=== PATIENT | female | born 1940 | race Hispanic/Latino ===

== ENCOUNTER 2018-10-04 10:56 | Emergency (ER) | payer OTHER ==
--- NOTE | 2018-10-04 12:18 | EDPHYS ---
Physician Documentation [facility] Name: Joyce Espinosa Age: 78 yrs Sex: Female : 1940 Arrival Date: 10/04/2018 Time: 10:59 Bed 19 Private MD: Dipak Morales E ED Physician Andrew Downey HPI: 10/04 12:41 This 78 yrs old Female presents to ER via Ambulatory with complaints of Eye gs Problem. 12:41 The patient is experiencing burning, pain. Onset: The symptoms/episode began/occurred 1 gs year(s) ago, and became persistent. Duration: the symptoms are intermittent. Aggravated by nothing. Alleviated by nothing. Associated signs and symptoms: Pertinent negatives: dizziness, fever. Severity of symptoms: At their worst the symptoms were moderate in the emergency department the symptoms are unchanged. The patient has experienced similar episodes in the past, chronically, last saw opth about 2 months ago says changes insurances which didn't cover doc or meds, scheduled for appt not for a few weeks. Historical: - Allergies: 11:16 No Known Allergies; ph - PMHx: 11:17 absess Left eye; Hypertension; Glaucoma; Cataracts; ph - PSHx: 11:17 Hysterectomy; eye; ph - Immunization history:: Adult Immunizations up to date. - Social history:: Smoking status: Patient/guardian denies using tobacco. - Ebola Screening: : No symptoms or risks identified at this time. ROS: 12:41 All other systems are negative. gs Exam: 12:41 Visual Acuity: I have reviewed the nursing documentation. gs 12:41 Head/Face: Normocephalic, atraumatic. Cardiovascular: Regular rate and rhythm with a normal S1 and S2. No gallops, murmurs, or rubs. Normal PMI, no JVD. No pulse deficits. Respiratory: Lungs have equal breath sounds bilaterally, clear to auscultation and percussion. No rales, rhonchi or wheezes noted. No increased work of breathing, no retractions or nasal flaring. Abdomen/GI: Soft, non-tender, with normal bowel sounds. No distension or tympany. No guarding or rebound. No evidence of tenderness throughout. Skin: Warm, dry with normal turgor. Normal color with no rashes, no lesions, and no evidence of cellulitis. Neuro: Awake and alert, GCS 15, oriented to person, place, time, and situation. Cranial nerves II-XII grossly intact. Motor strength 5/5 in all extremities. Sensory grossly intact. Cerebellar exam normal. Normal gait. 12:41 Constitutional: The patient appears alert, awake. 12:41 Eyes: Conjunctiva: no acute changes, Corneas: no acute changes, Anterior chamber: hyphema noted, absent. Vital Signs: 11:14 BP 142 / 67; Pulse 55; Resp 18; Temp 97.8; Pulse Ox 99% on R/A; ph Visual Acuity: 12:10 Left Eye Visual acuity 20/30, ; Right Eye Visual acuity 20/70, ; Both Eyes Visual hb acuity 20/30; Without Lenses; MDM: 11:37 Patient medically screened. gs 12:41 Differential diagnosis: Acute glaucoma in dry eyes. Data reviewed: vital signs, nurses gs notes. Administered Medications: No medications were administered Disposition: 10/04/18 12:17 Discharged to Home. Impression: Ocular pain, left eye, Ocular pain, right eye. - Condition is Stable. - Discharge Instructions: Glaucoma, Dry Eye. - Medication Reconciliation Form, Thank You Letter, Antibiotic Education, Prescription Opioid Use form. - Follow up: Lisa Reeves MD; When: 2 - 3 days; Reason: Recheck today's complaints, Re-evaluation by your physician. Follow up: Lisa Reeves MD; When: Today; Reason: 1pm. Signatures: Rosa Isela Alvarado RN RN Jolanta Huitron RN RN Andrew Downey MD MD Corrections: (The following items were deleted from the chart) 12:19 12:17 10/04/2018 12:17 Discharged to Home. Impression: Ocular pain, left eye; Ocular gs pain, right eye. Condition is Stable. Forms are Medication Reconciliation Form, Thank You Letter, Antibiotic Education, Prescription Opioid Use. Follow up: Lisa Reeves; When: 2 - 3 days; Reason: Recheck today's complaints, Re-evaluation by your physician. 12:44 12:19 10/04/2018 12:17 Discharged to Home. Impression: Ocular pain, left eye; Ocular hb pain, right eye. Condition is Stable. Discharge Instructions: Glaucoma, Dry Eye. Forms are Medication Reconciliation Form, Thank You Letter, Antibiotic Education, Prescription Opioid Use. Follow up: Lisa Reeves; When: Today; Reason: 1pm. gs
--- NOTE | 2018-10-04 12:18 | ER ---
Nurse's Notes [facility] Name: Joyce Espinosa Age: 78 yrs Sex: Female : 1940 Arrival Date: 10/04/2018 Time: 10:59 Bed 19 Private MD: Dipak Morales E Diagnosis: Ocular pain, left eye;Ocular pain, right eye Presentation: 10/04 11:13 Presenting complaint: Patient states: Wandy eye redness, discharge, watering, pain and ph sensitivity to light, redness and swelling noted to wandy eyes, reports hx of cataracts and glaucoma. Transition of care: patient was not received from another setting of care. Onset of symptoms was October 04, 2018. Risk Assessment: Do you want to hurt yourself or someone else? Patient reports no desire to harm self or others. Initial Sepsis Screen: Does the patient meet any 2 criteria? No. Patient's initial sepsis screen is negative. Care prior to arrival: None. 11:13 Method Of Arrival: Ambulatory ph 11:13 Acuity: ERMELINDA 3 ph Historical: - Allergies: 11:16 No Known Allergies; ph - PMHx: 11:17 absess Left eye; Hypertension; Glaucoma; Cataracts; ph - PSHx: 11:17 Hysterectomy; eye; ph - Immunization history:: Adult Immunizations up to date. - Social history:: Smoking status: Patient/guardian denies using tobacco. - Ebola Screening: : No symptoms or risks identified at this time. Screenin:10 Abuse screen: Denies threats or abuse. Denies injuries from another. Nutritional hb screening: No deficits noted. Tuberculosis screening: No symptoms or risk factors identified. Fall Risk None identified. Assessment: 12:00 General: Appears in no apparent distress. Behavior is calm, cooperative. Pain: Pain hb currently is 2 out of 10 on a pain scale. Neuro: Level of Consciousness is awake, alert, obeys commands, Oriented to person, place, time, situation. Cardiovascular: Capillary refill < 3 seconds Patient's skin is warm and dry. Respiratory: Airway is patent Respiratory effort is even, unlabored, Respiratory pattern is regular, symmetrical. GI: No signs and/or symptoms were reported involving the gastrointestinal system. : No signs and/or symptoms were reported regarding the genitourinary system. EENT: Reports bilateral eye pain and watering. Derm: Skin is intact, is healthy with good turgor. Musculoskeletal: No signs and/or symptoms reported regarding the musculoskeletal system. Vital Signs: 11:14 BP 142 / 67; Pulse 55; Resp 18; Temp 97.8; Pulse Ox 99% on R/A; ph Visual Acuity: 12:10 Left Eye Visual acuity 20/30, ; Right Eye Visual acuity 20/70, ; Both Eyes Visual hb acuity 20/30; Without Lenses; ED Course: 10:59 Patient arrived in ED. sb2 11:00 Dipak Morales MD is Private Physician. sb2 11:14 Triage completed. ph 11:17 Arm band placed on. ph 11:18 Andrew Downey MD is Attending Physician. gs 11:40 Patient has correct armband on for positive identification. Bed in low position. Call light in reach. Side rails up X 1. Adult w/ patient. 12:17 Lisa Reeves MD is Referral Physician. gs 12:18 Referral Physician role handed off by Lisa Reeves MD 12:18 Lisa Reeves MD is Referral Physician. Administered Medications: No medications were administered Outcome: 12:17 Discharge ordered by . gs 12:44 Patient left the ED. Signatures: Rosa Isela Alvarado RN RN Jolanta Huitron RN RN Andrew Downey MD MD Kaycee Holley sb2
[2018-10-04 12:51] VITALS: BP 142/67; TEMP 97.8; O2SAT 99
== END 2018-10-04 12:44 | disposition home or self-care (01) ==
LOC: ER 10:56
DX: H57.13 Ocular pain, bilateral (principal); I10 Essential (primary) hypertension
CPT/HCPCS: 99281

== ENCOUNTER 2022-06-10 17:21 | Inpatient (IN) | payer OTHER ==
--- OUTSIDE RECORDS SUMMARY | 2022-06-10 17:24 | XMS REPORT | Continuity of Care Document ---
:1940 Author Organization [facility] t Address [address] [place] [address] Care Team Providers Name Role Phone EDDIE JJ Primary Care Physician Unavailable Radiology Attending Clinician Unavailable RADIOLOGY Attending Clinician Unavailable Doctor Unassigned, [place] Attending Clinician Unavailable NAVYA WESTBROOK Admitting Clinician Unavailable Payers Payer Name Policy Type Policy Number Effective Date Expiration Date Veronika martinez [employer] [id number] 2021 00:00:00 [place] Problems Condition Condition Condition Status Onset Resolution Last Treating Co mments Source Name Details Category Date Date Treatment Clinician Date Cataract Cataract Disease Active Unive rs of both of both 2-18 ity of eyes eyes 00:00: [place] 00 [facility] Dry eyes Dry eyes Disease Active Unive rs 2-18 ity of 00:00: [address] Other Other Disease Active Overview: Univer s specified specified 04-01 Form[place] i ty of glaucoma glaucoma 00:00: g of this [place] 00 note Medical might be Branch different from the original. Both eyes Allergies, Adverse Reactions, Alerts Allergy Allergy Status Severity Reaction(s) Onset Inactive Treating Comm ents Source Name Type Date Date Clinician NO KNOWN Drug Active Univers ALLERGIE Class ity of S [facility] Social History Social Habit Start Date Stop Date Quantity Comments Source Exposure to Not sure [facility] SARS-CoV-2 (event) Medica l Branch Sex Assigned At [birth year] [facility] 00:00:00 00:00:00 Medical Felicity Smoking Status Start Date Stop Date Source Unknown if ever smoked [facility] Medications Ordered Filled Start Stop Current Ordering Indication Dosage Frequency Signature Comments Components Source Medication Medication Date Date Medication? Clinician (SIG) Name Name TRAVOPROST Yes 1[drp] Place 1 Un rahat (TRAVATAN Z 2-18 Drop in ity o f OPHTHALMIC) 00:00: each eye [place] 00 at Medical bedtime. Branch dorzolamide Yes 1[drp] Place 1 U nivers -timolol 2-18 Drop in ity of (COSOPT) [place] 2-0.5 % 00 2 (two) Medical ophthalmic times Branch drops daily. brimonidine Yes 1[drp] Place 1 U nivers (ALPHAGAN 2-18 Drop in ity of P) 0.15 % 00:00: both eyes [place] as ophthalmic 00 2 (two) Medica l drops times Branch daily. TRAVOPROST Yes 1[drp] Place 1 Un rahat (TRAVATAN Z 2-18 Drop in ity o f OPHTHALMIC) 00:00: [place] 00 at Medical bedtime. Branch dorzolamide Yes 1[drp] Place 1 U nivers -timolol 2-18 Drop in ity of (COSOPT) 00:[place]: [place] 2-0.5 % 00 2 (two) Medical ophthalmic times Branch drops daily. brimonidine Yes 1[drp] Place 1 U nivers (ALPHAGAN 2-18 Drop in ity of P) 0.15 % 00:00: both eyes [place] as ophthalmic 00 2 (two) Medica l drops times Branch daily. Immunizations Ordered Filled Immunization Date Status Comments [facility] e Immunization Name Name SARS-COV-2 COVID-19 2021-07-28 Completed Unive rsity of PFIZER VACCINE 00:00:00 [facility] SARS-COV-2 COVID-19 2021-07-28 Completed Unive rsity of PFIZER VACCINE 00:00:00 [facility] SARS-COV-2 COVID-19 2021-01-06 Completed Unive rsity of PFIZER VACCINE 00:00:00 [facility] SARS-COV-2 COVID-19 2021-01-06 Completed Unive rsity of PFIZER VACCINE 00:00:00 [facility] SARS-COV-2 COVID-19 2020-12-16 Completed Unive rsity of PFIZER VACCINE 00:00:00 [facility] SARS-COV-2 COVID-19 2020-12-16 Completed Unive rsity of PFIZER VACCINE 00:00:00 [facility] Procedures Procedure Date / Time Performed Performing Clinician Sourc e DEXA AXIAL (HIP AND 2022-01-09 15:13:21 Requisition, Paper Unive rsity of [place] SPINE) [facility] ASSIGNMENT OF BENEFITS 2022-01-09 14:10:55 Doctor Unassigned, No [facility] Name [facility] Encounters Start End Encounter Admission Attending Care Care Encounter Source Date/Time Date/Time Type Type Clinicians Facility Department ID 2022-01-09 2022-01-09 Hospital Radiology [facility] [id number] Univers 09:12:17 23:59:00 Encounter [place] [id number] ity [facility] [id number] [facility] [id number] [place] [address] Branch 2022-01-09 2022-01-09 Outpatient R RADIOLOGY [facility] [id number] Univers 09:12:17 23:59:00 ity of [facility] 2022-01-09 2022-01-09 Orders Doctor ABHISHEK [id number] Univers 00:00:00 00:00:00 Only Unassigned, EVAN [id number] ity of [place] [facility] [id number] [place] [id number] [place] [id number] Branch Results This patient has no known results.
[2022-06-10 17:49] LABS: Absolute Lymphocytes (CBC) 2.4 K/uL (0.7-4.9); Lymphocytes % 26.1 % (15.3-44.8); MPV 9.1 fL (7.6-11.3)
[2022-06-10 17:58] LABS: Potassium 3.9 mmol/L (3.5-5.1)
--- NOTE | 2022-06-10 18:11 | RAD REPORT ---
EXAM DESCRIPTION: CT - Head C Spine Cap Wo Con - 06/10/2022 5:56 pm CLINICAL HISTORY: falldown concrete steps, head, neck, chest and abdomen pain COMPARISON: Brain Wo Cont dated 07/12/2019 TECHNIQUE: Axial [address] head images were obtained. Axial [address] cervical spine images were obtain ed with sagittal and coronal reconstruction images reviewed. Axial 5 mm images of the chest, abdomen and pelvis were obtained. All CT scans are performed using dose optimization technique as appropriate and may include automated exposure control or mA/KV adjustment according to patient size. FINDINGS: No intracranial hemorrhage, mass or edema. No midline shift or abnormal fluid collection. Mastoid air cells are clear. Minimal mucosal thickening in the right side sphenoid sinus. No skullbas e fracture identified. No fracture of the cranial vault. Atrophy and chronic ischemic changes are re latively mild for age. Ventricles are in proportion to any volume loss. Cervical bodies are normal in height and alignment.No significant atlantoaxial rotation abnormality. C1 lateral masses are normally positioned to the occipital condyles.No fracture or acute bone finding .C3-4, C4-5 and C5-6 disc space narrowing present. Multilevel facet joint degenerative changes are pr esent. Bilateral bony foraminal encroachment at C3-4 and minimally at C4-5.No prevertebral soft tissu e thickening or paraspinal mass.Central canal detail is inherently limited on CT imaging. Two adjacent areas of irregular soft tissue opacification present in the inferior aspect of the right upper lobe measuring 12 mm and 13 mm in size (series 402, image 21). Interstitial and alveolar opaci ties are present in the right middle lobe and in the lingula of the left upper lobe. Dependent atelec tasis is seen in the posterior aspect of each lower lobe. No pneumothorax or pleural effusion. No med iastinal hematoma and the aorta and pulmonary arteries are unremarkable. No chest will mass or abnorm al axillary finding. No scapula fracture. No displaced rib fractures are seen. Sternum is intact. Tho racic spine degenerative change and kyphosis noted without acute vertebral body finding. CT abdomen and pelvis show no injury to solid abdominal viscera. Gallbladder and biliary tree are unr emarkable. No bowel injury or significant finding. No free air, free fluid or abnormal stranding. No hernia, mass or bulky lymphadenopathy. No urinary bladder abnormality. Prominent lumbar spine degenerative changes are present. No fracture of the bony pelvis. Right proxim al femur fracture is present generally tracking along the subcapital region. No pathologic change. Th ere is minimal impaction. There is slight rotation of the femoral head relative to the neck. IMPRESSION: No acute or significant CT Head finding. No acute or significant CT cervical spine finding. Focal right upper lobe parenchymal opacities could be pulmonary contusion. Right middle lobe and ling kalani interstitial and alveolar opacities are favored to be scarring but could be pulmonary contusion c hange as well. Right upper lobe mass lesion is not excluded entirely and patient needs follow-up CT chest imaging in 4-6 weeks to monitor for resolution. No acute traumatic injury to the abdominal and pelvic soft tissues. Right femur subcapital neck fracture.
--- NOTE | 2022-06-10 18:12 | RAD REPORT ---
EXAM DESCRIPTION: RAD - Chest Single View - 06/10/2022 5:44 pm CLINICAL HISTORY: TRAUMA COMPARISON: Two view chest 12/25/2020 TECHNIQUE: AP portable chest image was obtained 06/10/2022 5:44 pm . FINDINGS: Chronic interstitial fibrotic changes are present. No large areas of pulmonary contusion i dentified. No pneumothorax or pleural fluid collection. Heart size, vasculature and mediastinal structures are within range of normal for portable imaging. No acute bony abnormality seen. No acute aortic findings suspected. IMPRESSION: No acute cardiopulmonary process. Chronic interstitial lung pattern could mask minimal areas of pulmonary contusion.
--- NOTE | 2022-06-10 18:13 | RAD REPORT ---
EXAM DESCRIPTION: Shoulder Right 2 View - 06/10/2022 5:44 pm CLINICAL HISTORY: PAIN COMPARISON: Head C Spine Cap Wo Con dated 06/10/2022 TECHNIQUE: Internal and external rotation views of the right shoulder were obtained. FINDINGS: There is no fracture or dislocation. AC joint degenerative change present without AC sepa ration. Inferiorly directed spurs are seen. No pathologic bone process. Degenerative change seen rebecca g the superolateral greater tuberosity. IMPRESSION: Negative two-view right shoulder examination for fracture or acute finding.
--- NOTE | 2022-06-10 18:14 | RAD REPORT ---
EXAM DESCRIPTION: RAD - Hip Right 2 View - 06/10/2022 5:44 pm CLINICAL HISTORY: PAIN, fall COMPARISON: No comparisons FINDINGS: AP and cross-table lateral views were obtained. Minimally impacted subcapital right femoral neck fracture is present. There is impaction along the po sterior margin with slight rotation the femoral head. No pathologic changes seen. No fracture of the right hemipelvis are right sacral ala. Lower lumbar degenerative changes are prese nt. No AVN of the femoral head. IMPRESSION: Minimally impacted right femur subcapital neck fracture.
[2022-06-10] MEDS ORDERED: FENTANYL CITR 100 MCG/2 ML ONE (18:31)
--- NOTE | 2022-06-10 18:50 | ER ---
Nurse's Notes [facility] Name: Joyce Espinosa Age: 81 yrs Sex: Female : 1940 Arrival Date: 06/10/2022 Time: 17:22 Bed 2 Private MD: Diagnosis: Right subcapital neck fracture;Pain in right hip;Fall (on) (from) other stairs and steps;Essential (primary) hypertension Presentation: 06/10 17:23 Chief complaint: EMS states: FALL DOWN CONCRETE STEPS. Care prior to arrival: bp Medication(s) given: 25 MCG FENTANYL IV initiated. 20 GA, in the right antecubital area. Mechanism of Injury: Fall CONCRETE STEPS. Trauma event details: Injury occurred in the [facility], Injury occurred: at home. Injury occurred: June 10, 2022 Injury occurred at: 17:00. 17:23 Acuity: ERMELINDA 3 bp 17:23 Method Of Arrival: EMS: [facility] bp 17:28 Coronavirus screen: At this time, the client does not indicate any symptoms associated bp with coronavirus-19. Ebola Screen: No symptoms or risks identified at this time. Initial Sepsis Screen: Does the patient meet any 2 criteria? No. Patient's initial sepsis screen is negative. Does the patient have a suspected source of infection? No. Patient's initial sepsis screen is negative. Risk Assessment: Do you want to hurt yourself or someone else? Patient reports no desire to harm self or others. Onset of symptoms was June 10, 2022 at 17:00. Triage Assessment: 17:29 General: SEE TRAUMA. bp Trauma Activation: Consult Physician: ED Physician; Name: ; Notified At: ; Arrived At: Physician: General Surgeon; Name: ; Notified At: ; Arrived At: Physician: Radiology; Name: ; Notified At: ; Arrived At: Physician: Respiratory; Name: ; Notified At: ; Arrived At: Physician: Lab; Name: ; Notified At: ; Arrived At: Historical: - Allergies: : No Known Allergies; bp - Home Meds: : metoprolol tartrate 25 mg Oral tab 1 tab once daily [Active]; Nexium 40 mg Oral cpDR 1 bp cap once daily [Active]; - PMHx: :29 Hypertension; Glaucoma; Cataracts; absess Left eye; bp - Immunization history: Last tetanus immunization: unknown. - Social history:: Smoking status: Patient denies any tobacco usage or history of. Screenin:23 Abuse screen: Denies threats or abuse. Denies injuries from another. Tuberculosis bp screening: No symptoms or risk factors identified. 17:31 Nutritional screening: No deficits noted. Fall Risk None identified. bp Primary Survey: 17:23 NO uncontrolled hemorrhage observed. A: The client is awake and alert. The airway is bp patent. Breathing/Chest: Spontaneous respiratory effort, equal unlabored respirations, breath sounds clear bilaterally, regular pattern, symmetrical chest rise and fall. Circulation: No external hemorrhage present. Regular and strong central pulse, skin warm/dry/normal color. Disability Client is alert. Exposure/Environment: There is no evidence of uncontrolled external bleeding. Obvious injury(ies) are noted at this time: R HIP PAIN WITH R LEG SHORTENING. 21:02 Reassessment Breathing: Spontaneous respiratory effort, equal unlabored respirations, ld1 breath sounds clear bilaterally, regular pattern with symmetrical chest rise and fall. Assessment: 17:23 General: Appears distressed, uncomfortable, Behavior is calm, cooperative, appropriate bp for age. Pain: Complains of pain in right hip. Neuro: Level of Consciousness is awake, alert, obeys commands, Oriented to person, place, time, situation, Appropriate for age. EENT: No deficits noted. Cardiovascular: No deficits noted. Respiratory: No deficits noted. GI: No signs and/or symptoms were reported involving the gastrointestinal system. : No signs and/or symptoms were reported regarding the genitourinary system. Derm: No deficits noted. Musculoskeletal: No deficits noted. Injury Description: Bruise sustained to right hip. 18:08 Reassessment: No changes from previously documented assessment. Patient and/or family bp updated on plan of care and expected duration. Pain level reassessed. PT RETURNED FROM CT. Vital Signs: 17:23 BP 149 / 97; Pulse 75; Resp 16; Temp 98; Pulse Ox 100% ; bp 18:08 BP 142 / 66; Pulse 64; Resp 18; Pulse Ox 99% ; bp Edward Coma Score: 17:23 Eye Response: spontaneous(4). Verbal Response: oriented(5). Motor Response: obeys bp commands(6). Total: 15. Trauma Score (Adult): 17:23 Eye Response: spontaneous(1); Verbal Response: oriented(1); Motor Response: obeys bp commands(2); Systolic BP: > 89 mm Hg(4); Respiratory Rate: 10 to 29 per min(4); Edward Score: 15; Trauma Score: 12 ED Course: 17:22 Patient arrived in ED. ms3 17:22 Nicola Rodriguez DO is Attending Physician. ms3 17:23 Mario Mg, YUSUF is Primary Nurse. bp 17:23 Patient has correct armband on for positive identification. Bed in low position. Call bp light in reach. Side rails up X2. 17:23 Patient maintains SpO2 saturation greater than 95% on room air. Thermoregulation: warm bp blanket given to patient. 17:25 Triage completed. bp 17:31 Maintain EMS IV. Dressing intact. Good blood return noted. Site clean \T\ dry. Gauge \T\ bp site: 20 GA RIGHT AC. 17:45 XRAY Chest (1 view) In Process Unspecified. EDMS 17:45 Shoulder Right (2 View) XRAY In Process Unspecified. EDMS 17:46 Hip Right 2 View XRAY In Process Unspecified. EDMS 17:58 CT Traumagram (Head C Spine CAP wo con) In Process Unspecified. EDMS 18:30 Type And Screen Sent. kc6 18:49 Teofilo Barnard MD is Hospitalizing Provider. ms3 21:02 No provider procedures requiring assistance completed. Patient admitted, IV remains in ld1 place. 21:03 Arm band placed on left wrist. ld1 Administered Medications: 18:28 Drug: fentaNYL (PF) 25 mcg Route: IVP; Site: right antecubital; ld1 Medication: 17:31 VIS not applicable for this client. bp Intake: 17:23 PO: 0ml; Total: 0ml. bp Output: 17:23 Urine: 0ml; Total: 0ml. bp Outcome: 18:49 Decision to Hospitalize by Provider. ms3 21:02 Admitted to Med/surg accompanied by gerri, via stretcher, room 228, with chart, Report ld1 called to YUSUF Oden 21:02 Condition: stable 21:02 Instructed on the need for admit. 21:02 Patient's length of stay in the Emergency Department was greater than 2 hours. ld1 21:03 Patient left the ED. ld1 Signatures: Dispatcher [employer] Mario Caballero, RN RN bp Nicola Rodriguez DO DO ms3 Maria G High RN RN ld1 Lesli Arreola kc6
--- NOTE | 2022-06-10 18:50 | EDPHYS ---
Physician Documentation [facility] Name: Joyce Espinosa Age: 81 yrs Sex: Female : 1940 Arrival Date: 06/10/2022 Time: 17:22 Bed 2 Private MD: ED Physician Nicola Rodriguez HPI: 06/10 17:26 This 81 yrs old Female presents to ER via EMS with complaints of Fall Injury. ms3 17:26 Details of fall: The patient fell from a height, unknown number of stairs. Onset: The ms3 symptoms/episode began/occurred at an unknown time. Associated injuries: The patient sustained Right shoulder, right hip. Severity of symptoms: At their worst the symptoms were moderate, in the emergency department the symptoms are unchanged. Presented via [facility]. Patient given 25 mcg Fentanyl and 4 mg Zofran. Historical: - Allergies: 17:29 No Known Allergies; bp - Home Meds: 17:29 metoprolol tartrate 25 mg Oral tab 1 tab once daily [Active]; Nexium 40 mg Oral cpDR 1 bp cap once daily [Active]; - PMHx: 17:29 Hypertension; Glaucoma; Cataracts; absess Left eye; bp - Immunization history: Last tetanus immunization: unknown. - Social history:: Smoking status: Patient denies any tobacco usage or history of. ROS: 17:26 Constitutional: Negative for fever, and chills. Neck: Negative for injury, pain, and ms3 swelling, Cardiovascular: Negative for chest pain, and palpitations. Respiratory: Negative for shortness of breath, cough, wheezing, and pleuritic chest pain, Abdomen/GI: Negative for abdominal pain, nausea, vomiting, diarrhea, and constipation. 17:26 MS/extremity: Positive for pain, Right shoulder, right hip. 17:26 All other systems are negative. Exam: 17:30 Constitutional: This is a well developed, well nourished patient who is awake, alert, ms3 and in no acute distress. Head/Face: Normocephalic, atraumatic. Neck: Trachea midline, no cervical lymphadenopathy. Supple, full range of motion without nuchal rigidity, or vertebral point tenderness. No Meningismus. Chest/axilla: Normal chest wall appearance and motion. Nontender with no deformity. Cardiovascular: Regular rate and rhythm with a normal S1 and S2. No gallops, murmurs, or rubs. Normal PMI, no JVD. No pulse deficits. Respiratory: Lungs have equal breath sounds bilaterally, clear to auscultation and percussion. No rales, rhonchi or wheezes noted. No increased work of breathing, no retractions or nasal flaring. Abdomen/GI: Soft, non-tender, with normal bowel sounds. No distension or tympany. No guarding or rebound. No evidence of tenderness throughout. Skin: Warm, dry with normal turgor. Normal color with no rashes, no lesions, and no evidence of cellulitis. 17:30 Musculoskeletal/extremity: Extremities: noted in the right hip: pain, tenderness, noted in the right shoulder: pain. Vital Signs: 17:23 BP 149 / 97; Pulse 75; Resp 16; Temp 98; Pulse Ox 100% ; bp 18:08 BP 142 / 66; Pulse 64; Resp 18; Pulse Ox 99% ; bp [place] Coma Score: 17:23 Eye Response: spontaneous(4). Verbal Response: oriented(5). Motor Response: obeys bp commands(6). Total: 15. Trauma Score (Adult): 17:23 Eye Response: spontaneous(1); Verbal Response: oriented(1); Motor Response: obeys bp commands(2); Systolic BP: > 89 mm Hg(4); Respiratory Rate: 10 to 29 per min(4); [place] Score: 15; Trauma Score: 12 MDM: 17:22 Patient medically screened. ms3 17:30 Differential diagnosis: contusion, fracture, multiple trauma. Data reviewed: vital ms3 signs, nurses notes. 18:50 Data interpreted: monitor technician: rate is 71 beats/min, rhythm is normal sinus rhythm, ms3 regular, with no ectopy, Interpretation: normal rate, normal rhythm. Counseling: I had a detailed discussion with the patient and/or guardian regarding: the historical points, exam findings, and any diagnostic results supporting the discharge/admit diagnosis, lab results, radiology results, the need for further work-up and treatment in the hospital. ED course: Discussed case with Dr Ruiz. Will consult if needed. Likely pulmonary scaring vs contusions. Discussed case with Dr Truong and he will consult. Discussed case with Ac Nino NP, and he accepts patient on behalf of Dr Barnard. Patient remains in stable condition.. 06/10 17:24 Order name: Basic Metabolic Panel; Complete Time: 18:32 ms3 06/10 17:24 Order name: CBC with Diff; Complete Time: 18:32 ms3 06/10 17:24 Order name: Type And Screen; Complete Time: 18:32 ms3 06/10 17:24 Order name: CT Traumagram (Head C Spine CAP wo con) ms3 06/10 18:50 Order name: SARS RAPID ld1 06/10 19:02 Order name: ABO/RH no charge EDMS 06/10 17:24 Order name: XRAY Chest (1 view); Complete Time: 18:32 ms3 06/10 17:24 Order name: Labs collected and sent; Complete Time: 17:30 ms3 06/10 17:25 Order name: Shoulder Right (2 View) XRAY; Complete Time: 18:32 ms3 06/10 17:25 Order name: Hip Right 2 View XRAY; Complete Time: 18:32 ms3 Administered Medications: 18:28 Drug: fentaNYL (PF) 25 mcg Route: IVP; Site: right antecubital; ld1 Disposition Summary: 06/10/22 18:49 Hospitalization Ordered Hospitalization Status: Inpatient Admission ms3 Provider: Teofilo Barnard ms3 Condition: Stable ms3 Problem: new ms3 Symptoms: are unchanged ms3 Bed/Room Type: Standard ms3 Location: Telemetry/MedSurg (Inpatient)(06/10/22 20:17) cg Room Assignment: [employer](06/10/22 20:17) Diagnosis - Right subcapital neck fracture ms3 - Pain in right hip ms3 - Fall (on) (from) other stairs and steps ms3 - Essential (primary) hypertension ms3 Forms: - Medication Reconciliation Form ms3 - SBAR form ms3 Signatures: Dispatcher [employer] EDMS Dolly Trent Cindy RN RN cg Mario Mg RN RN Nicola Sandhu DO DO ms3 Maria G High RN RN ld1 Corrections: (The following items were deleted from the chart) 18:51 18:49 Telemetry/MedSurg (Inpatient) ms3 bd 18:51 18:49 ms3 bd 20:17 18:51 BR ER HOLD bd cg 20:17 18:51 ERHOLD- bd cg
[2022-06-10] MEDS ORDERED: ONDANSETRON 4 MG/2 ML VIAL IV PRN (19:00)
[2022-06-10] MEDS: D5.45NS W/KCL 20MEQ 1,000 ML IV SCH (19:00)
[2022-06-10 19:06] VITALS: BMI 17.6
--- NOTE | 2022-06-10 19:09 | P.HP ---
Certification for Inpatient Patient admitted to: Inpatient With expected LOS: >2 Midnights Patient will require the following post-hospital care: None Practitioner: I am a practitioner with admitting privileges, knowledge of patient current condition, hospital course, and medical plan of care. Services: Services provided to patient in accordance with Admission requirements found in Title 42 Section 412.3 of the Code of Federal Regulations Patient History Date of Service: 06/10/22 Reason for admission: Right hip fracture History of Present Illness: 81-year-old female with history of hypertension, GERD presents emergency department after sustaining a fall at her assisted living facility. She fell down approximately 2 steps, reports that she lost her footing denies LOC. Patient was complaining of right hip pain she was evaluated in the emergency department her labs were significant for hemoglobin 9.[address] of her head/C-spine/chest abdomen pelvis showed 2 adjacent areas of irregular soft tissue opacification present in the inferior aspect of the right upper lobe measuring 12 mm and 13 mm in size, interstitial and alveolar opacities present in the right middle lobe and lingula of the left upper lobe which could be scarring versus pulmonary contusion, radiology recommends follow-up CT in 4 to 6 weeks to monitor for resolution. Also significant for right femur subcapital neck fracture. ED physician discussed case with surgery on-call Dr. Ruiz and orthopedic Dr. Truong will both be consulted on this patient. Will admit for further evaluation and management. Allergies No Known Allergies Allergy (Verified 07/19/14 15:34) Home Medications: Difluprednate [Durezol] 1 drop OP QID 07/19/14 Gentamicin Opth Drop [Garamycin Opth Drops*] 1 drop OP TID 07/19/14 Metoprolol Succinate [Toprol Xl*] 25 mg PO DAILY #30 tab 07/20/14 - Past Medical/Surgical History Has patient received pneumonia vaccine in the past: No Diabetic: No -: glaucoma -: Hypertension -: GERD -: glaucoma sx Psychosocial/ Personal History: Patient lives with her at an assisted living facility - Family History Family History: Reviewed- Non-Contributory - Social History Smoking Status: Never smoker Alcohol use: No CD- Drugs: No Caffeine use: Yes Place of Residence: Home Review of Systems 10-point ROS is otherwise unremarkable Musculoskeletal: Leg Pain, As per HPI Physical Examination - Physical Exam General: Alert, In no apparent distress, Oriented x3 HEENT: Atraumatic, PERRLA, Mucous membr. moist/pink, EOMI, Sclerae nonicteric Neck: Supple, 2+ carotid pulse no bruit, No LAD, Without JVD or thyroid abnormality Respiratory: Clear to auscultation bilaterally, Normal air movement Cardiovascular: Regular rate/rhythm, Normal S1 S2 Capillary refill: <2 Seconds Gastrointestinal: Normal bowel sounds, No tenderness Musculoskeletal: Other (Shortening of right lower extremity) Integumentary: No rashes Neurological: Normal gait, Normal speech, Normal strength at 5/5 x4 extr, Normal tone, Normal affect - Studies Laboratory Data (last 24 hrs) 06/10/22 17:27: WBC 9.30, Hgb 9.7 L, Hct 29.0 L, Plt Count 282 06/10/22 17:27: Sodium 138, Potassium 3.9, BUN 22 H, Creatinine 0.77, Glucose 128 H Assessment and Plan - Plan Assessment: Right subcapital femoral neck fracture Pulmonary contusions versus scarring Hypertension GERD Plan: Right subcapital femoral neck fracture: N.p.o., IVF, as needed pain medications. Orthopedics consulted anticipate operative management. Pulmonary contusions versus scarring: Unclear on CT whether this is related to scarring versus contusions but patient did sustain a fall. Continue with incentive spirometry, surgical consult in place as needed pain medications. Patient not complaining of significant chest pain at this time. Radiology does recommend follow-up CT scan in 4 to 6 weeks to assess for resolution and rule out mass/lesion. Hypertension: Continue home medications once verified. GERD: Continue home medications once verified. DVT PPX:SCD Code status:Full Discharge Plan: Home Plan to discharge in: Greater than 2 days - Advance Directives Does patient have a Living Will: No Does patient have a Durable POA for Healthcare: No - Code Status/Comfort Care Code Status Assessed: Yes (Full) Critical Care: No Time Spent Managing Pts Care (In Minutes): 70
[2022-06-10] MEDS ORDERED: D5.45NS W/KCL 20MEQ 1,000 ML IV ONE (19:27)
[2022-06-10 20:01] LABS: SARS-CoV-2 Antigen Rapid Res Negative (Negative)
[2022-06-10] MEDS: MORPHINE 2 MG/ML SYR IV PRN (20:06)
[2022-06-10] MEDS ORDERED: MORPHINE 2 MG/ML SYR ONE (20:13)
[2022-06-10] MEDS ORDERED: ONDANSETRON 4 MG/2 ML VIAL ONE (20:13)
[2022-06-11] MEDS: MORPHINE 2 MG/ML SYR IV PRN ×2 (03:32→14:35)
[2022-06-11] MEDS ORDERED: MORPHINE 2 MG/ML SYR IV ONE (04:51)
[2022-06-11 05:44] LABS: Absolute Lymphocytes (CBC) 1.2 K/uL (0.7-4.9); Hematocrit 27.3 % (36.0-45.0); MCV 87.9 fL (80-100); MPV 8.7 fL (7.6-11.3)
[2022-06-11 06:12] LABS: Albumin 3.1 g/dL (3.4-5.0); Bilirubin Total 0.6 mg/dL (0.2-1.0); Potassium 3.9 mmol/L (3.5-5.1); Protein, Total 6.8 g/dL (6.4-8.2)
--- NOTE | 2022-06-11 06:32 | P.PN ---
Date of Service: 06/11/22 Subjective: No significant changes Having right hip pain with movement, okay at rest Denies any cough, fever, shortness of breath, dysuria ROS: 10 point ROS as noted above, otherwise negative Physical exam GEN: Alert, oriented, NAD HEENT: Normal conjunctiva, sclera anicteric CV: Regular rate and rhythm, no edema Pulm: Nonlabored respirations on room air ABD: Soft, nontender, nondistended MSK: pain at R hip with movement/ROM Neuro: Normal speech, normal affect Problem List Right subcapital femoral neck fracture Pulmonary contusions vs scarring Hypertension GERD Right subcapital femoral neck fracture: NPO, IVF ortho consulted patient optimized for surgery Tentative plan for OR today Pulmonary contusions vs scarring: Unclear on CT whether this is related to scarring versus contusions but patient did sustain a fall. No obvious ecchymosis or tenderness over the coinciding skin/ribs. Unlikely to be contusions Dr. Haro, general surgery was consulted as this was a trauma. No further evaluation needed Continue with incentive spirometry Hypertension: Continue home medications once verified / taking PO GERD: Continue home medications once verified. VTE: SCDs pre-op Code status:Full Dispo: Home, ~1-2 days
[2022-06-11] MEDS: D5.45NS W/KCL 20MEQ 1,000 ML IV SCH ×2 (09:37→22:22)
--- NOTE | 2022-06-11 14:29 | CON ---
Date of Consultation: 06/11/2022 Reason For Consultation: Status post fall, right hip fracture, rule out right chest contusion. History Of Present Illness: The patient is an 81-year-old female, who fell approximately 2 steps aft er losing balance and injured her right hip. She is Latvian speaking. She denies any loss of consci ousness. She states that she lost her footing before she fell. She is complaining of right hip pain , but she denies any chest pain. No dyspnea. No shortness of breath. No cough. No pain anywhere o n the chest area. No sore throat, runny nose, cough, headaches, or dizziness. No fever or chills. Review of Systems: Otherwise unremarkable. Past Medical History: Glaucoma, hypertension, and GERD. Past Surgical History: Glaucoma surgery. Allergies: NO ALLERGIES. Social History: The patient does not smoke or drink. Family History: Noncontributory. Physical Examination: Vital Signs: Stable. She is currently afebrile. General: She is awake and alert. She is oriented x3. Head and Neck: Cranial nerves 2 through 12 are grossly within normal limits. No neck masses. No JV D. Throat clear. Neck is supple. No neck tenderness. Chest: There is no tenderness, bruising. The patient can respire fully without any difficulty. Heart: S1 and S2. Abdomen: Soft. Extremities: The right hip is tender. Extremities neurovascular intact. Neuro: Nonfocal. Diagnostic Data: Reviewed. H and H are stable. White count is normal. Chemistry reviewed. Tomogr am reviewed. Chest x-ray reviewed. Basically, the patient has a hip fracture on the right side and she had some opacities in the right lung, which are moral consistent with chronic lung disease rather than acute contusion as the patient has no evidence of trauma to the right chest. There are no acut e findings on the CAT scan. Assessment: An 81-year-old female, status post fall with right hip fracture and I believe the patien t does not have lung contusion. Recommendations: Surgery per the Orthopedic Service and incentive spirometry and oxygen per protocol . No need for any trauma surgery intervention at this time. Please re-consult pdon BARNES/MARY ANNE Voice ID: [id number] Report ID: [id number]
[2022-06-11] MEDS: Ringers Lactate 0 ML IV ONE ×2 (15:50→15:57)
[2022-06-11] MEDS ORDERED: CEFAZOLIN SODIUM 1 GM/VIAL ONE (15:57)
[2022-06-11] MEDS ORDERED: TRANEXAMIC ACID 1,000 MG/10 ML VIAL IV ONE (15:57)
[2022-06-11] MEDS ORDERED: propofoL 200 MG/20 ML VIAL IV ONE (16:07)
[2022-06-11] MEDS ORDERED: LIDOCAINE 2% MPF 5 ML VIAL ONE (16:08)
[2022-06-11] MEDS ORDERED: Phenylephrine HCl 10 MG/ML 1 ML VIAL ONE (16:09)
[2022-06-11] MEDS ORDERED: GLYCOPYRROLATE 0.2 MG/ML SYR ONE ×2 (16:32→17:24)
[2022-06-11] MEDS ORDERED: FENTANYL CITR 100 MCG/2 ML ONE (16:37)
[2022-06-11] MEDS ORDERED: Ringers Lactate 1,000 ML IV ONE (16:47)
[2022-06-11] MEDS ORDERED: KETOROLAC 30 MG/ML INJ ONE (16:55)
[2022-06-11] MEDS ORDERED: dexAMETHasone 10 MG/ML VIAL ONE (16:56)
[2022-06-11] MEDS ORDERED: ONDANSETRON 4 MG/2 ML VIAL ONE (16:56)
--- NOTE | 2022-06-11 17:49 | P.BOP ---
Preoperative diagnosis: right femoral neck fracture Postoperative diagnosis: same Primary procedure: right bipolar hemiarthoplasty Estimated blood loss: 150 ccs Anesthesia: General Complications: None Transferred to: Recovery Room Condition: Good
[2022-06-12] MEDS: CEFAZOLIN 1 GM in NA CHLORIDE 0.9% 50 ML IVPB SCH ×2 (00:01→08:39)
[2022-06-12] MEDS ORDERED: NA CHLORIDE 0.9% 500 ML IV ONE (03:42)
[2022-06-12] MEDS ORDERED: NA CHLORIDE 0.9% 500 ML ONE (03:53)
[2022-06-12] MEDS ORDERED: HYDROCODONE/APAP 5/325 MG TAB PO PRN (04:02)
[2022-06-12] MEDS ORDERED: ACETAMINOPHEN 500 MG TAB PO PRN (04:02)
[2022-06-12] MEDS ORDERED: MORPHINE 2 MG/ML SYR IV PRN (04:03)
[2022-06-12 06:16] LABS: Absolute Lymphocytes (CBC) 0.5 K/uL (0.7-4.9); Hematocrit 23.7 % (36.0-45.0); Lymphocytes % 4.4 % (15.3-44.8); MCV 86.4 fL (80-100); MPV 8.6 fL (7.6-11.3); RBC Red Blood Cell Count 2.74 M/uL (3.86-4.86)
[2022-06-12 06:29] LABS: Albumin 2.6 g/dL (3.4-5.0); Bilirubin Total 0.5 mg/dL (0.2-1.0); Potassium 4.2 mmol/L (3.5-5.1)
--- NOTE | 2022-06-12 06:32 | P.PN ---
Date of Service: 06/12/22 Subjective: pain improved after surgery worked with PT hgb decreased, soft BP dry mouth (chronic) low appetite (chronic) ROS: 10 point ROS as noted above, otherwise negative Physical exam GEN: Alert, oriented, NAD HEENT: Normal conjunctiva, sclera anicteric CV: Regular rate and rhythm, no edema Pulm: Nonlabored respirations on room air ABD: Soft, nontender, nondistended MSK: discomfort at R hip with movement/ROM Neuro: Normal speech, normal affect Problem List Right subcapital femoral neck fracture Pulmonary scarring Hypertension GERD anemia, iron deficiency Right subcapital femoral neck fracture: s/p repair by Dr. Truong 06/11 doing well working with PT pain meds as needed WBAT Pulmonary contusions vs scarring: No obvious ecchymosis or tenderness over the coinciding skin/ribs. Unlikely to be contusions Dr. Ruiz, general surgery was consulted as this was a trauma. No further evaluation needed Continue with incentive spirometry start xarelto 06/12 for prophylaxis Hypertension: Continue home medications once verified / taking PO GERD: Continue home medications once verified. Iron deficiency anemia: IV iron, patient with poor nutritional intake, denies dark stools VTE: xarelto, prophylaxis Code status:Full Dispo: Home, ~1-2 days
[2022-06-12 06:46] LABS: RBC Red Blood Cell Count 2.73 M/uL (3.86-4.86)
[2022-06-12 06:54] LABS: Ferritin 28.4 ng/mL (8-388)
[2022-06-12] MEDS: RIVAROXABAN 10 MG TABLET PO SCH (08:39)
[2022-06-12] MEDS: D5.45NS W/KCL 20MEQ 1,000 ML IV SCH (18:32)
[2022-06-12] MEDS ORDERED: MELATONIN 5 MG TABLET PO PRN (19:51)
[2022-06-13 01:38] VITALS: O2SAT 98
[2022-06-13] MEDS ORDERED: SOD FERRIC GLUC COMPLX/SUCROSE 125 MG in NA CHLORIDE 0.9% 100 ML IV SCH (06:00)
[2022-06-13 06:18] LABS: Hematocrit 23.5 % (36.0-45.0); MCV 88.2 fL (80-100); RBC Red Blood Cell Count 2.66 M/uL (3.86-4.86)
[2022-06-13] MEDS ORDERED: PANTOPRAZOLE 40MG TABLET PO SCH (06:30)
[2022-06-13 06:33] LABS: Magnesium 1.8 mg/dL (1.8-2.4); Potassium 3.8 mmol/L (3.5-5.1)
[2022-06-13] MEDS ORDERED: NA CHLORIDE 0.9% 250 ML IV SCH (07:00)
[2022-06-13] MEDS: RIVAROXABAN 10 MG TABLET PO SCH (08:02)
[2022-06-13] MEDS ORDERED: POTASSIUM 25 MEQ EFFERV TAB PO ONE (09:00)
--- NOTE | 2022-06-13 15:12 | P.DS ---
Admission Date: 06/10/22 Discharge Date: 06/13/22 Disposition: DC HOME/HOME HEALTH CARE Discharge Condition: GOOD Reason for Admission: Right hip fracture Consultations: Orthopedic surgery - Dr. Truong General surgery - Dr. Ruiz Brief History of Present Illness: 81yo F, PMH: HTN, GERD, Dry mouth Presents to ED after fall while walking down stairs. Denies LOC. Fell down ~ 2 steps landing on her right hip. In the ED, she was found to be anemic with Hgb in the 9s, CT with R femur subcapital neck fracture. Admitted for further management. CT of her head/C-spine/chest abdomen pelvis showed 2 adjacent areas of irregular soft tissue opacification present in the inferior aspect of the right upper lobe measuring 12 mm and 13 mm in size, interstitial and alveolar opacities present in the right middle lobe and lingula of the left upper lobe which could be scarring versus pulmonary contusion, radiology recommends follow-up CT in 4 to 6 weeks to monitor for resolution. Hospital Course: Problem List Right subcapital femoral neck fracture no s/p surgical fixation Hypertension GERD anemia, iron deficiency Patient presented to ER after fall while exercising on stairs and was found to have a right subcapital femoral neck fracture. She underwent surgical correction by Dr. Truong without complications. Patient was noted to be anemic on admission with Hgb: 9.0. She denied prior history of anemia, however for the last year or more has been having difficulty eating solid foods due to dry mouth. She drinks lots of soups / ensures, etc. Workup revealed iron deficiency. Post-operatively her hemoglobin trending slowly down to just under 8. She was given 1 unit PRBC. She ambulated with physical therapy and pain was tolerable. Discharged home with home health / PT, with 3 weeks of 10mg xarelto, then should take aspirin 81mg for 3 weeks. Medications: New: Xarelto - 10mg, 3 weeks, post-op DVT prophylaxis Aspirin 81mg daily for 3 weeks - start AFTER finishing xarelto Iron - once daily no other changes to medications Follow up: PCP within [address] Truong in ~1-2 weeks As noted above, incidental CT findings of lung; recommend repeat CT chest in 4-6 weeks. Physical exam GEN: Alert, oriented, NAD HEENT: Normal conjunctiva, sclera anicteric CV: Regular rate and rhythm, no edema Pulm: Nonlabored respirations on room air ABD: Soft, nontender, nondistended MSK: discomfort at R hip with movement/ROM Neuro: Normal speech, normal affect Vital Signs/Physical Exam: Temp Pulse Resp BP Pulse Ox 97.6 F 71 16 103/48 L 96 06/13/22 12:00 06/13/22 12:00 06/13/22 12:00 06/13/22 12:00 06/13/22 12:00 Laboratory Data at Discharge: WBC 11.10 K/uL (4.3-10.9) H 06/13/22 05:24 Hgb Cancelled 06/13/22 14:13 Hct Cancelled 06/13/22 14:13 Plt Count 203 K/uL (152-406) 06/13/22 05:24 Sodium 137 mmol/L (136-145) 06/13/22 05:24 Potassium 3.8 mmol/L (3.5-5.1) 06/13/22 05:24 BUN 15 mg/dL (7-18) 06/13/22 05:24 Creatinine 0.62 mg/dL (0.55-1.3) 06/13/22 05:24 Glucose 105 mg/dL (74-106) 06/13/22 05:24 Magnesium 1.8 mg/dL (1.8-2.4) 06/13/22 05:24 Total Bilirubin 0.5 mg/dL (0.2-1.0) 06/12/22 05:48 AST 34 U/L (15-37) 06/12/22 05:48 ALT 19 U/L (12-78) 06/12/22 05:48 Alkaline Phosphatase 52 U/L (45-117) 06/12/22 05:48 Home Medications: Cevimeline HCl 1 cap PO TID 06/11/22 Cyclosporine [Restasis] 2 drop EACH EYE BID 06/11/22 Esomeprazole Mag Trihydrate [Nexium] 1 cap PO DAILY AT SUPPER 06/11/22 Lifitegrast [Xiidra] 2 drops EACH EYE BEDTIME 06/11/22 Codeine/APAP [Tylenol W/Codeine #3 tab] 1 tab PO Q8HP PRN 5 Days #15 tab 06/13/22 Ferrous Sulfate [Iron] 325 mg PO DAILY 30 Days #30 tab 06/13/22 Rivaroxaban [Xarelto*] 10 mg PO DAILY 20 Days #20 tab 06/13/22 New Medications: Codeine/APAP [Tylenol W/Codeine #3 tab] 1 tab PO Q8HP PRN 5 Days #15 tab PRN Reason: Pain Ferrous Sulfate [Iron] 325 mg PO DAILY 30 Days #30 tab Rivaroxaban [Xarelto*] 10 mg PO DAILY 20 Days #20 tab Physician Discharge Instructions: Patient presented to ER after fall while exercising on stairs and was found to have a right subcapital femoral neck fracture. She underwent surgical correction by Dr. Truong without complications. Patient was noted to be anemic on admission with Hgb: 9.0. She denied prior history of anemia, however for the last year or more has been having difficulty eating solid foods due to dry mouth. She drinks lots of soups / ensures, etc. Workup revealed iron deficiency. Post-operatively her hemoglobin trending slowly down to just under 8. She was given 1 unit PRBC. She ambulated with physical therapy and pain was tolerable. Discharged home with home health / PT, with 3 weeks of 10mg xarelto, then should take aspirin 81mg for 3 weeks. Medications: New: Xarelto - 10mg, 3 weeks, post-op DVT prophylaxis Aspirin 81mg daily for 3 weeks - start AFTER finishing xarelto Iron - once daily no other changes to medications Follow up: PCP within [address] Truong in ~1-2 weeks Activity: Weight bearing as tolerated Followup: Fernando Truong MD [ACTIVE - CAN ADMIT] - 1-2 Weeks NONE,NONE [Primary Care Provider] - Time spent managing pt's care (in minutes): 45
[2022-06-13 16:07] LABS: Hematocrit 31.1 % (36.0-45.0)
[2022-06-13 16:15] VITALS: BP 112/60; TEMP 98.4
--- NOTE | 2022-06-15 13:38 | OP ---
Date of Procedure: 06/11/2022 Surgeon: Fernando Truong MD Preoperative Diagnosis: Right displaced femoral neck fracture. Postoperative Diagnosis: Right displaced femoral neck fracture. Procedure: Right hip bipolar hemiarthroplasty, which was performed using the Whitehall stem from the Profyle. Estimated Blood Loss: 100 cc. Complications: There were no complications. Specimens: No pathology or specimens sent. Indication For Operation: Ms. Espinosa is an 81-year-old female who unfortunately fell yesterday off some steps, injuring her right lower extremity. She was seen and examined in the emergency department where she was ruled out for other injuries. However, x-ray and CAT scan demonstrated a displaced right femoral neck fracture. Risks, benefits, and alternatives of different methods of treating were discussed with the patient and family including the possibility of screw fixation; however, this is quite displaced and she is 81 years old. I also discussed the possibility of total hip arthroplasty as she may have a slight amount of arthritis, but she is a limited ambulator and risk for dislocation could be reduced with bipolar hemiarthroplasty as well as decreased surgical time. Family and the patient understand that it may lead to some groin pain, however, at this time patient opts for bipolar hemiarthroplasty and all their questions have been invited and answered. Description Of Procedure: The patient was taken to the operating room and placed in the supine position. General anesthesia was obtained by the staff. Following this, she was then placed on the operative table. She was rolled left side down with an axillary roll. Her right lower extremity was then prepped and draped in usual sterile fashion for procedure. Following this, a standard posterolateral incision was taken down carefully through the skin and soft tissues. Meticulous hemostasis had been maintained using Bovie electrocautery. This lead down to the fascia. A small stab wound was made in the fascia and brought up to near the tip of the greater trochanter with a gently curved at the gluteus, which was spread with finger pressure. It should be noted that the bursa was quite thickened and adherent, being cleared with a finger. Also, it should be noted that the patient only weighs 90 pounds and the sciatic nerve was palpated and found to be extremely close to the operative field, did not appear to be covered by the external rotators at this time. Therefore, great care was taken to protect the sciatic nerve throughout the remainder of the procedure. After this, the external rotators and capsule were then taken down and tagged for later repair. The femoral neck was cut in a rather standard fashion. The neck fragments were removed. The ball was then identified and removed using a corkscrew. It was then sized using ring gauges to a size 44. The soft tissue is removed within the acetabulum and attention was turned back to the femur. A box truck owner operator was then used to lateralize followed by canal-finding reamer. It was then sequentially broached up to appropriate size. There was a possibility that we could have gotten a larger broach; however, the patient's bone quality on the femoral neck was extremely brittle and decision was made not to try to over- broach and also to cement. After this, the canal was then copiously irrigated until it runs clean. The bone plug was placed to appropriate depth and third generation cementation technique was then used to place the Whitehall stem at appropriate pre-broach depth. It was then held in place until dried. It was then trialed with a standard ball and this appeared to be quite tight. She did come to full extension, however, appeared to be somewhat tighter than I would like even in this patient whom we were aiming for good stability. Therefore, the decision was made to move forward with a -4. Acetabulum was cleared for any debris and the -4 ball was then placed on the stem. It was then relocated. It was stable to full flexion, full adduction, and internal rotation to at least 45 degrees. The wound was copiously irrigated, and the external rotators and capsule were then repaired back to greater trochanter via bone tunnels and the fascia was closed in a watertight fashion using heavy Vicryl sutures, the skin was closed using Vicryl sutures followed by cora. The patient was then placed in Aquacel dressing. She was then awakened and taken to recovery room. /MARY ANNE Voice ID: [id number] Report ID: [id number] AGUSTINA
== END 2022-06-13 17:06 | disposition home health service (06) | DRG 522 ==
LOC: ER 17:21 → ERHOLD 18:51 → 2ND 20:21
PROVIDERS: ADMIT Hospitalist; ATTEND Hospitalist
PROC: 0SRR0J9 Replacement of Right Hip Joint, Femoral Surface with Synthetic Substitute, Cemented, Open Approach (ICD-10-PCS; principal; 2022-06-11 16:30)
PROC: 30233N1 Transfusion of Nonautologous Red Blood Cells into Peripheral Vein, Percutaneous Approach (ICD-10-PCS; 2022-06-13)
DX: S72.011A Unspecified intracapsular fracture of right femur, initial encounter for closed fracture (principal); I10 Essential (primary) hypertension; K21.9 Gastro-esophageal reflux disease without esophagitis; D50.9 Iron deficiency anemia, unspecified; J98.4 Other disorders of lung; Z79.899 Other long term (current) drug therapy; Z79.82 Long term (current) use of aspirin; Z79.01 Long term (current) use of anticoagulants; Z20.822 Contact with and (suspected) exposure to COVID-19; W10.9XXA Fall (on) (from) unspecified stairs and steps, initial encounter
CPT/HCPCS: 36415; 36430; 70450; 71045; 71250; 72125; 80048; 80053; 82728; 83540; 83735; 84466; 85014; 85018; 85025; 85027; 85044; 86850; 86900; 86901; 87811; 88305; 88311; 94010; 96374; 97110; 97116; 97161; 97530; 99285; J0690; J1100; J2270; J2370; J2405; J2704; J2916; J3010; J7040; J7050; J7120; P9016

== ENCOUNTER 2022-07-05 11:55 | Emergency (ER) | payer OTHER ==
--- OUTSIDE RECORDS SUMMARY | 2022-07-05 11:58 | XMS REPORT | Continuity of Care Document ---
:1940 Author Organization [facility] t Address [address] [id number] Care Team Providers Name Role Phone EDDIE JJ Primary Care Physician Unavailable Radiology Attending Clinician Unavailable RADIOLOGY Attending Clinician Unavailable Doctor Unassigned, [place] Attending Clinician Unavailable NAVYA WESTBROOK Admitting Clinician Unavailable Payers Payer Name Policy Type Policy Number Effective Date Expiration Date Veronika martinez [employer] [id number] 2021 00:00:00 SPRING Problems Condition Condition Condition Status Onset Resolution Last Treating Co mments Source Name Details Category Date Date Treatment Clinician Date Cataract Cataract Disease Active Unive rs of both of both 2-18 ity of eyes eyes 00:00: [place] 00 [facility] Dry eyes Dry eyes Disease Active Unive rs 2-18 ity of 00:00: [place] 00 [facility] Other Other Disease Active Overview: Univer s [...] Active Univers ALLERGIE Class ity of S [facility] Social History Social Habit Start Date Stop Date Quantity Comments Source Exposure to Not sure [facility] SARS-CoV-2 (event) Medica l Branch Sex Assigned At [birth year] [facility] 00:00:00 00:00:00 [facility] Branch Smoking Status Start Date Stop Date Source Unknown if ever smoked [facility] Medications Ordered Filled Start Stop Current Ordering [...] Immunizations Ordered Filled Immunization Date Status Comments [facility] e Immunization Name Name SARS-COV-2 COVID-19 2021-07-28 Completed Unive rsity of PFIZER VACCINE 00:00:00 [facility] SARS-COV-2 COVID-19 2021-07-28 Completed Unive rsity of PFIZER VACCINE 00:00:00 [facility] SARS-COV-2 COVID-19 2021-01-06 Completed Unive rsity of PFIZER VACCINE 00:00:00 [facility] SARS-COV-2 COVID-19 2021-01-06 Completed Unive rsity of PFIZER VACCINE 00:00:00 [facility] SARS-COV-2 COVID-19 2020-12-16 Completed Unive rsity of PFIZER VACCINE 00:00:00 [facility] SARS-COV-2 COVID-19 2020-12-16 Completed Unive rsity of PFIZER VACCINE 00:00:00 [facility] Procedures Procedure Date / Time Performed Performing Clinician Sourc e DEXA AXIAL (HIP AND 2022-01-09 15:13:21 Requisition, Paper Unive rsity of [place] SPINE) [facility] ASSIGNMENT OF BENEFITS 2022-01-09 14:10:55 Doctor Unassigned, No University [facility] Name [facility] Encounters Start End Encounter Admission Attending Care Care Encounter Source Date/Time Date/Time Type Type Clinicians Facility Department ID 2022-01-09 2022-01-09 Hospital Radiology [facility] [id number] Univers 09:12:17 23:59:00 Encounter [place] [id number] ity of [place] [id number] [facility] [id number] [place] [address] Branch 2022-01-09 2022-01-09 Outpatient R RADIOLOGY [facility] [id number] Univers 09:12:17 23:59:00 ity of [facility] 2022-01-09 2022-01-09 Orders Doctor ABHISHEK [id number] Univers 00:00:00 00:00:00 Only Unassigned, EVAN [id number] ity of [place] [facility] [id number] [place] [id number] [place] [address] Branch Results This patient has no known results.
[2022-07-05] MEDS ORDERED: CEFTRIAXONE 1000 MG/VIAL ONE (13:41)
[2022-07-05] MEDS ORDERED: LIDOCAINE 1% MPF 5 ML VIAL ONE (13:41)
--- NOTE | 2022-07-05 14:01 | EDPHYS ---
Physician Documentation [facility] Name: Joyce Espinosa Age: 81 yrs Sex: Female : 1940 Arrival Date: 07/05/2022 Time: 11:58 Bed 8 Private MD: ED Physician Dario Santos HPI: 07/05 13:11 This 81 yrs old Female presents to ER via Ambulatory with complaints of snw Decreased Appetite, Eye Problem. 13:11 Onset: The symptoms/episode began/occurred gradually. Associated signs and symptoms: snw Pertinent positives: urinary s/s. Modifying factors: The patient symptoms are alleviated by nothing. It is unknown whether or not the patient has had similar symptoms in the past. recent hip surgery, being tx per Dr. Noble for eye infection. Historical: - Allergies: 12:55 No Known Allergies; ss - Home Meds: 12:55 metoprolol tartrate 25 mg Oral tab 1 tab once daily [Active]; meclizine 12.5 mg Oral ss tab 1 tabs 3 times per day [Active]; Xarelto 10 mg oral tab 1 tab once daily [Active]; ferrous sulfate 325 mg (65 mg iron) Oral cpER daily [Active]; Acetaminophen-Codeine Oral [Active]; - PMHx: 12:55 absess Left eye; Cataracts; Glaucoma; Hypertension; ss - Immunization history:: Client reports receiving the 2nd dose of the Covid vaccine. - Social history:: Smoking status: Patient denies any tobacco usage or history of. ROS: 13:09 Constitutional: Negative for fever, chills, and weight loss, ENT: Negative for injury, snw pain, and discharge, Neck: Negative for injury, pain, and swelling, Cardiovascular: Negative for chest pain, palpitations, and edema, Respiratory: Negative for shortness of breath, cough, wheezing, and pleuritic chest pain, Abdomen/GI: Negative for abdominal pain, nausea, vomiting, diarrhea, and constipation, Back: Negative for injury and pain, MS/Extremity: Negative for injury and deformity, Skin: Negative for injury, rash, and discoloration, Neuro: Negative for headache, weakness, numbness, tingling, and seizure, Psych: Negative for depression, anxiety, suicide ideation, homicidal ideation, and hallucinations. 13:09 Eyes: Positive for itching and chronic eye infection. 13:09 : Positive for urinary symptoms, hematuria, burning with urination. Exam: 13:12 Head/Face: Normocephalic, atraumatic. Eyes: Pupils equal round and reactive to light, snw extra-ocular motions intact. Lids and lashes normal. Conjunctiva and sclera are non-icteric and not injected. Cornea within normal limits. Periorbital areas with no swelling, redness, or edema. Chest/axilla: Normal chest wall appearance and motion. Nontender with no deformity. No lesions are appreciated. Back: No spinal tenderness. No costovertebral tenderness. Full range of motion. + kyphosis Skin: Warm, dry with normal turgor. Normal color with no rashes, no lesions, and no evidence of cellulitis. MS/ Extremity: Pulses equal, no cyanosis. Neurovascular intact. Full, normal range of motion. ambulating with a walker 13:12 Constitutional: The patient appears alert, awake, frail, listless. Vital Signs: 12:53 BP 125 / 82; Pulse 90; Resp 16; Temp 98.4(TE); Pulse Ox 99% on R/A; Weight 45.36 kg; ss Height 5 ft. 0 in. (152.40 cm); Pain 0/10; 14:27 BP 132 / 81; Pulse 64; Resp 16; Pulse Ox 100% ; kr3 12:53 Body Mass Index 19.53 (45.36 kg, 152.40 cm) ss MDM: 13:00 Patient medically screened. [facility] 13:57 Data reviewed: vital signs, nurses notes. Data interpreted: Pulse oximetry: on room air snw is 99 %. Interpretation: normal. Counseling: I had a detailed discussion with the patient and/or guardian regarding: the historical points, exam findings, and any diagnostic results supporting the discharge/admit diagnosis, lab results, the need for outpatient follow up, to return to the emergency department if symptoms worsen or persist or if there are any questions or concerns that arise at home. Response to treatment: There is no appreciated change of the patient's symptoms at this time. Special discussion: Based on the history and exam findings, there is no indication for further emergent testing or inpatient evaluation. I discussed with the patient/guardian the need to see the primary care provider for further evaluation of the symptoms. ED course: Pt is without ecchymosis, no abdominal pain, + blood in urine with s/s of UTI. Will treat as UTI, if bleeding worsens, pt has pain, ecchymosis, return precautions given and family/pt voice understanding. 07/05 13:14 Order name: Urine Culture snw 07/05 13:14 Order name: Urine Microscopic Only snw 07/05 13:14 Order name: Urine Dipstick-Ancillary (obtain specimen); Complete Time: 13:17 snw Administered Medications: 13:58 Drug: Rocephin (cefTRIAXone) 1 grams Route: IM; Site: left gluteus; kr3 14:27 Follow up: Response: No adverse reaction kr3 Disposition Summary: 07/05/22 14:00 Discharge Ordered Location: Home snw Condition: Stable snw Diagnosis - Dysuria snw - Hematuria, unspecified snw Followup: snw - With: Emergency Department - When: As needed - Reason: Worsening of condition Followup: snw - With: Private Physician - When: 1 - 2 days - Reason: Recheck today's complaints, Continuance of care, Re-evaluation by your physician Discharge Instructions: - Discharge Summary Sheet snw - Dysuria snw - Hematuria, Adult snw Forms: - Medication Reconciliation Form snw - Thank You Letter snw - Antibiotic Education snw - Prescription Opioid Use snw Prescriptions: - cefpodoxime 100 mg Oral Tablet - take 1 tablet by ORAL route every 12 hours for 10 days take with food; 20 snw tablet; Refills: 0, Product Selection Permitted Signatures: Dispatcher [employer] EDMS Dario Santos MD MD cha Waters, Shelly, TENNIS PROFESSIONAL-C TENNIS PROFESSIONAL-Csnw Bindu Yanez, RN RN ss Sneha Walden, RN RN kr3
--- NOTE | 2022-07-05 14:01 | ER ---
Nurse's Notes [facility] Name: Joyce Espinosa Age: 81 yrs Sex: Female : 1940 Arrival Date: 07/05/2022 Time: 11:58 Bed 8 Private MD: Diagnosis: Dysuria;Hematuria, unspecified Presentation: 07/05 12:35 Chief complaint: Patient states: Burning with urination and blood in urine that began ss after Hip surgery on June 13. 12:53 Coronavirus screen: Client denies travel out of the [place] in the last 14 days. Ebola ss Screen: Patient denies exposure to infectious person. Patient denies travel to an Ebola-affected area in the 21 days before illness onset. Initial Sepsis Screen: Does the patient meet any 2 criteria? No. Patient's initial sepsis screen is negative. Does the patient have a suspected source of infection? No. Patient's initial sepsis screen is negative. Risk Assessment: Do you want to hurt yourself or someone else? Patient reports no desire to harm self or others. Onset of symptoms is unknown. 12:53 Method Of Arrival: Ambulatory ss 12:53 Acuity: ERMELINDA 3 ss Historical: - Allergies: 12:55 No Known Allergies; ss - Home Meds: 12:55 metoprolol tartrate 25 mg Oral tab 1 tab once daily [Active]; meclizine 12.5 mg Oral ss tab 1 tabs 3 times per day [Active]; Xarelto 10 mg oral tab 1 tab once daily [Active]; ferrous sulfate 325 mg (65 mg iron) Oral cpER daily [Active]; Acetaminophen-Codeine Oral [Active]; - PMHx: 12:55 absess Left eye; Cataracts; Glaucoma; Hypertension; ss - Immunization history:: Client reports receiving the 2nd dose of the Covid vaccine. - Social history:: Smoking status: Patient denies any tobacco usage or history of. Screenin:28 Abuse screen: Denies threats or abuse. Nutritional screening: No deficits noted. kr3 Tuberculosis screening: No symptoms or risk factors identified. Fall Risk No IV (0 pts). Gait- Impaired (20 pts.). Total [place] Fall Scale indicates No Risk (0-24 pts). Assessment: 13:15 General: Appears in no apparent distress. comfortable, Behavior is calm, cooperative, kr3 appropriate for age. Pain: Denies pain. Vital Signs: 12:53 BP 125 / 82; Pulse 90; Resp 16; Temp 98.4(TE); Pulse Ox 99% on R/A; Weight 45.36 kg; Height 5 ft. 0 in. (152.40 cm); Pain 0/10; 14:27 BP 132 / 81; Pulse 64; Resp 16; Pulse Ox 100% ; kr3 12:53 Body Mass Index 19.53 (45.36 kg, 152.40 cm) ED Course: 11:58 Patient arrived in ED. rg4 12:47 Jessy Myers FNP-C [facility]. snw 12:47 Dario Santos MD is Attending Physician. snw 12:55 Triage completed. 12:55 Arm band placed on right wrist. 12:59 Bed in low position. Call light in reach. Side rails up X 1. kr3 13:00 Patient placed in an exam room, on a stretcher. ll1 13:06 Sneha Walden, YUSUF is Primary Nurse. kr3 13:24 Urine Culture Sent. ll1 14:04 Urine Microscopic Only Sent. ll1 14:04 Urine Culture Sent. ll1 14:29 No provider procedures requiring assistance completed. Patient did not have IV access kr3 during this emergency room visit. Administered Medications: 13:58 Drug: Rocephin (cefTRIAXone) 1 grams Route: IM; Site: left gluteus; kr3 14:27 Follow up: Response: No adverse reaction kr3 Medication: 14:30 VIS not applicable for this client. kr3 Outcome: 14:00 Discharge ordered by . snw 14:29 Discharged to home via wheelchair. kr3 14:29 Condition: stable 14:29 Discharge instructions given to patient, family, Instructed on discharge instructions, follow up and referral plans. medication usage, Demonstrated understanding of instructions, follow-up care, medications, Prescriptions given X 1. 14:30 Patient left the ED. kr3 Signatures: Jessy Myers FNP-C FNP-Bindu Melara RN RN Nini Malone rg4 Dar Cartwright RN RN ll1 Sneha Walden RN RN kr3 Corrections: (The following items were deleted from the chart) 14:28 14:28 Fall Risk No IV (0 pts). Gait- Impaired (20 pts.). Total [place] Fall Scale kr3 indicates Low Risk Score (25-44 pts). kr3
[2022-07-05 14:35] LABS: Urine Bacteria Loaded /HPF (<20); Urine RBC >50 /HPF (None Seen); Urine WBC Clump Many /HPF (None Seen)
[2022-07-05 15:19] VITALS: TEMP 98.4
[2022-07-05 15:24] VITALS: BP 132/81; O2SAT 100
== END 2022-07-05 14:30 | disposition home or self-care (01) ==
LOC: ER 11:55
DX: R30.0 Dysuria (principal); R31.9 Hematuria, unspecified; I10 Essential (primary) hypertension
CPT/HCPCS: 87088; 87086; 81015; 96372; 99283; J2001; 87077; 87186